=== PATIENT | male | born 1990 | race Two or more races ===

== ENCOUNTER 2021-05-29 21:29 | Emergency (ER) | payer MEDICARE, MEDICAID ==
[~2021-05-29] VITALS: Ht 170.2 cm; Wt 99.8 kg
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
[2021-05-29] MEDS ORDERED: SILVER SULFADIAZINE CREAM 25 GM TUBE ONE (21:47)
[2021-05-29] MEDS ORDERED: HYDROCODONE/APAP 5/325MG TABLET ONE (21:54)
[2021-05-29] MEDS ORDERED: ONDANSETRON 4 MG TAB.RAPDIS ONE (21:54)
[2021-05-29] MEDS ORDERED: TDAP [DIPH/PERTUSSIS/TET] 0.5 ML VIAL IM ONE ×2 (21:55→22:00)
[2021-05-29] MEDS ORDERED: ONDANSETRON 4 MG TAB.RAPDIS SL ONE (22:00)
[2021-05-29] MEDS ORDERED: HYDROCODONE/APAP 5/325MG TABLET PO ONE (22:00)
[2021-05-29] MEDS ORDERED: IBUP-1955 PO (22:02)
[2021-05-29] MEDS ORDERED: SILV20CR13 TP (22:02)
--- NOTE | 2021-05-29 22:06 | NUR ---
TX TO R HAND KEPT C/D/I
--- NOTE | 2021-05-29 22:13 | NUR ---
Patient discharged to home in stable condition. RX Written and verbal after care instructions given. Patient verbalizes understanding of instruction. PT ambulatory with a steady gait. WOUND TX TO R HAND KEPT C/D/I.
[2021-05-29 22:23] VITALS: BP 131/87
== END 2021-05-29 22:23 | disposition home or self-care (01) ==
LOC: ER 21:32
DX: T23.201A Burn of second degree of right hand, unspecified site, initial encounter (principal); Z60.2 Problems related to living alone; Z79.899 Other long term (current) drug therapy; X08.8XXA Exposure to other specified smoke, fire and flames, initial encounter; Y93.89 Activity, other specified; Y92.89 Other specified places as the place of occurrence of the external cause; Y99.8 Other external cause status
CPT/HCPCS: 16020; 90471; 90715; 99283; Q0162